=== PATIENT | female | born 1955 | race Caucasian/White ===

== ENCOUNTER 2025-06-06 08:24 | Emergency (ER) | payer MEDICARE, SELFPAY ==
[2025-06-06 08:32] VITALS: BP 183/75; PULSE 75; TEMP 36.7; O2SAT 96; BMI 33.7
--- NOTE | 2025-06-06 08:57 | XR_ITS ---
The [address] [address] Patient Name: TONJA ELMORE MRN: [id number] date: 1955 Sex: F Assigned Patient Location: ER Current Patient Location: ER Accession/Order Number: [id number] Exam Date: 06/06/2025 09:00 Report Date: 06/06/2025 09:30 At the request of: MOE ZALDIVAR MD Procedure: XR shoulder RT min 2V RIGHT SHOULDER - 3 views CLINICAL HISTORY: Right shoulder pain since fell out of bed onto the floor this morning. COMPARISON: None AP, Y and Grashey views were obtained. There is no acute fracture or dislocation. There is mild hypertrophy at the acromioclavicular joint. Subchondral cystic change is seen at the greater tuberosity. There are no significant soft tissue abnormalities. Hemostasis clips are present in the right axilla. XR/XR shoulder RT min 2V IMPRESSION: MILD DEGENERATIVE CHANGE. NO ACUTE BONY INJURY. Impression dictated by: Yovana Bai M.D. 06/06/2025 9:30 AM Dictation Location: [place] [address] Electronically authenticated by: [id number] Y Date: 06/06/2025 09:30
[2025-06-06 09:51] VITALS: BP 174/78; O2SAT 98
--- NOTE | 2025-06-06 10:42 | ED_ITS ---
HPI HPI - Extremity Injury (Upper) General Chief Complaint: Extremity Injury, Upper Stated Complaint: upper extremity injury - 0345am today Time Seen by Provider: 06/06/25 08:39 Source: patient Mode of arrival: walk-in Limitations: no limitations History of Present Illness HPI narrative: The patient is a 70-year-old female with history of DVT on Eliquis, presented to the ER after she fell off her bed on her right shoulder and she did not hit her head or lose consciousness, but the patient is complaining of right shoulder pain, she is visiting here from [place] and she just rolled out of the bed when this happened The patient had no history of any shoulder surgeries before although she did had some injuries before when she was younger Related Data Home Medications ?Medication ?Instructions ?Recorded ?Confirmed L throxine 06/06/25 apixaban 5 mg tablet (Eliquis) 5 mg PO BID 06/06/25 denosumab 60 mg/mL subcutaneous mg subcut 06/06/25 syringe (Prolia) famotidine 40 mg tablet 40 mg PO DAILY 06/06/2505/26 valsartan 160 mg tablet (Diovan) 160 mg PO DAILY 06/0606/06/25 Previous Rx's ?Medication ?Instructions ?Recorded acetaminophen 650 mg 650 mg PO Q8H PRN pain #20 t abs 06/06/25 tablet,extended release (Tylenol Arthritis Pain) methylprednisolone 4 mg tablets in 4 mg PO .as directe d #21 ea 06/06/25 a dose pack (Medrol (Liam)) Allergies Allergy/AdvReac Type Severity Reaction Status Date / Time amoxicillin Allergy Mild Rash Verified 06/06/25 08:32 Penicillins Allergy Mild Rash Verified 06/06/25 08:32 Opioid HPI Opioid Management Most Recent Pain and Opioid Data: Last Pain Scale 4 Today, 08:32 Review of Systems ROS Status of ROS 10 or more systems reviewed and unremark able except as noted in history and below PFSH PFSH Social History Little interest or pleasure in doing things: not at all Feeling down, depressed, or hopeless: not at all Exam Narrative Exam Narrative: Nurses notes and vital signs reviewed and patient is not hypoxic. Right upper extremity: There is no ecchymosis seen the patient have limitation of movement of the right shoulder abduction above 90 degrees as well as flexion above 90 degrees but passive movement have a full range of movement The patient have no callus seen no tenderness on palpation she had a good radial pulse General: Well-appearing and in no apparent distress. Skin: Warm, dry, no pallor noted. No rash. Head: Normocephalic, atraumatic. Neck: Supple, non-tender. Cardiovascular: Regular Rate and Rhythm without murmur, gallop or rub. Respiratory: No accessory muscle use or respiratory distress. Lungs are clear to auscultation, no wheezing, rales or rhonchi Chest Wall: no tenderness Neurological: A&O x4. No cranial nerve dysfunction observed. No truncal ataxia. Moves all extremities. Sensation intact. Psychiatric: Cooperative and interactive. Normal mood and affect. Constitutional Vital Signs, click to edit/add: Last Vital Signs Temp 98.0 F 06/06/25 08:32 Pulse 75 06/06/25 08:32 Resp 18 06/06/25 09:51 BP 174/78 H 06/06/25 09:51 Pulse Ox 98 06/06/25 09:51 O2 Del Method Room Air 06/06/25 08:32 Course Vital Signs Vital signs: Vital Signs Temperature 98.0 F 06/06/25 08:32 Pulse Rate 75 06/06/25 08:32 Respiratory Rate 18 06/06/25 08:32 Blood Pressure 183/75 H 06/06/25 08:32 Pulse Oximetry 96 06/06/25 08:32 Oxygen Delivery Method Room Air 06/06/25 08:32 Temperature 98.0 F 06/06/25 08:32 Pulse Rate 75 06/06/25 08:32 Respiratory Rate 18 06/06/25 09:51 Blood Pressure 174/78 H 06/06/25 09:51 Pulse Oximetry 98 06/06/25 09:51 Oxygen Delivery Method Room Air 06/06/25 08:32 MDM - Extremity Injury (Upper) MDM Narrative Medical decision making narrative: X-ray of the right shoulder showed no acute pathology There was no head injury or any loss of consciousness The patient with her history of taking Eliquis she was discharged home with Medrol Dosepak and Tylenol for possible contusion management The patient to rest her right shoulder and follow-up with her primary care doctor when she gets to [place] next week The patient is to follow up with primary care physician in next 2-3 days or to return to the emergency department should any of the signs or symptoms worsen or new symptoms develop. The patient agrees with the following Diagnosis and Treatment plan and the patient will be discharged home. Discharge Plan Discharge Chief Complaint: Extremity Injury, Upper Clinical Impression: Contusion of right shoulder Patient Disposition: Home, Self-Care Time of Disposition Decision: 09:42 Condition: Good Prescriptions / Home Meds: New acetaminophen [Tylenol Arthritis Pain] 650 mg tablet extended release 650 mg PO Q8H PRN (Reason: pain) Qty: 20 0RF methylprednisolone [Medrol (Liam)] 4 mg tablets,dose pack 4 mg PO .as directed Qty: 21 0RF Rx Instructions: please give as per the dose pack instruction No Action Eliquis 5 mg tablet 5 mg PO BID L throxine valsartan [Diovan] 160 mg tablet 160 mg PO DAILY Prolia 60 mg/mL syringe subcut famotidine 40 mg tablet 40 mg PO DAILY Print Language: [place] Citizen Instructions: Contusion in Adults (ED) Referrals: Physician,Non-Staff, MD [Primary Care Provider] - 1 week Discharge Date/Time: 06/06/25 09:55
== END 2025-06-06 09:55 | disposition home or self-care (01) ==
PROVIDERS: Emergency Provider Emergency Medicine
DX: S40.011A Contusion of right shoulder, initial encounter (principal); W06.XXXA Fall from bed, initial encounter; Z79.01 Long term (current) use of anticoagulants; Z86.718 Personal history of other venous thrombosis and embolism
CPT/HCPCS: 73030; 99283